=== PATIENT | female | born 1965 | race Caucasian/White ===

== ENCOUNTER 2024-08-04 23:22 | Emergency (ER) | payer SELFPAY ==
[2024-08-04 23:23] VITALS: BMI 29.2
[2024-08-05 00:09] VITALS: BP 101/67; PULSE 80; RESP 18; TEMP 36.6; O2SAT 97
--- NOTE | 2024-08-05 00:21 | XR_ITS ---
Examination: Humerus 2 views left Technique: Humerus, AP lateral 2 views Date and time of exam: August 05, 2024, 12:35 AM INDICATIONS: Patient fell today with injury to the arm, arm pain FINDINGS: No fracture or shoulder dislocation IMPRESSION: No fracture or shoulder dislocation
--- NOTE | 2024-08-05 01:36 | PRELIM_ITS ---
Radiographs of the left humerus (2 views). August 05, 2024 at 0035 hours Clinical history: Fall. Comparison: No prior study is available for comparison. Findings: There is no evidence of fracture or dislocation. The humerus and its articulations are unremarkable. The soft tissues are unremarkable. Impression: No evidence of fracture or dislocation. Report Electronically Signed By: Dave Vides 08/05/2024 1:35:59 AM [EST]
--- NOTE | 2024-08-05 04:31 | PD.EDUPEX ---
Upper Extremity Injury RME/HPI General Chief Complaint: Fall Stated Complaint: LEFT ARM PAIN Time Seen by Provider: 08/05/24 00:21 Arrival date/time: 08/04/24 23:22 59F with no significant PMH presents to ED with L upper arm pain after trip and fall. Patient did not hit her head. Limitations: no limitations Related Data Allergies Allergy/AdvReac Type Severity Reaction Status Date / Time varenicline Allergy Unknown Verified 07/21/23 15:33 PLASTIC TAPE AdvReac Mild Agitated Uncoded 07/21/23 15:34 Review of Systems Review of Systems Systems Reviewed: All systems reviewed, normal except as documented Constitutional Constitutional: Reports system reviewed and no additional complaints, except as documented, Denies fever(s) and Denies headache(s) ENT Ears, Nose, Mouth, and Throat: Denies disequilibrium and Denies headache(s) Cardiovascular Cardiovascular: Reports system reviewed and no additional complaints, except as documented, Denies chest pain and Denies dyspnea Respiratory Respiratory: Reports system reviewed and no additional complaints, except as documented, Denies cough and Denies dyspnea Gastrointestinal Gastrointestinal: Reports system reviewed and no additional complaints, except as documented, Denies abdominal pain, Denies nausea and Denies vomiting Musculoskeletal Musculoskeletal: Reports as per HPI and Reports arthralgias Neurologic Neurologic: Reports system reviewed and no additional complaints, except as documented, Denies confusion, Denies disequilibrium and Denies headache(s) Psychiatric Psychiatric: Denies confusion Past Medical History Social History SMOKING STATUS: Current some day smoker ED Exam General Limitations: Present no limitations General appearance: Present alert and in no apparent distress Head Head exam: Present atraumatic Eye Eye exam: Present normal appearance, PERRL and EOMI ENT ENT exam: Present normal exam, normal oropharynx and mucous membranes moist Neck Neck exam: Present normal inspection, full ROM and trachea midline Chest Chest inspection: Present normal inspection and symmetric chest wall rise Respiratory Respiratory exam: Present normal lung sounds bilaterally Cardiovascular Cardiovascular exam: Present regular rate, normal rhythm and normal heart sounds Abdominal Exam Abdominal exam: Present soft and normal bowel sounds Extremities Exam Extremities exam: Present full ROM Expanded Upper Extremity Exam Arm exam: Present full ROM (L) and tenderness Back Exam Back exam: Present normal inspection and full ROM Neurological Exam Neurological exam: Present alert, oriented X3 and CN II-XII intact Psychiatric Psychiatric exam: Present normal affect and normal mood Skin Skin exam: Present warm, dry, intact and normal color Course Quality Measures none Orders Category Date Time Status sling [Splint / Immobilizer] STAT Care 08/05/24 01:48 Active XR humerus LT MIN 2V Stat Exams 08/05/24 00:21 Taken Vital Signs Vital signs: Vital Signs Temperature 97.8 F 08/05/24 00:09 Pulse Rate 80 08/05/24 00:09 Respiratory Rate 18 08/05/24 00:09 Blood Pressure 101/67 08/05/24 00:09 Pulse Oximetry (%) 97 08/05/24 00:09 Oxygen Delivery Method Room Air 08/05/24 00:09 O2 at 97% on RA and WNLs Extremity Injury MDM Narrative MDM Narrative:: 59F with no significant PMH presents to ED with L upper arm pain after trip and fall. Patient did not hit her head. Physical exam reveals L upper arm tenderness. Some pain with ROM, though mostly intact. Patient is afebrile, calm, and alert. XR no fx. 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 Patient data External records reviewed:: None Clinical information provided by:: patient Social determinants that could affect healthcare access:: none Patient has the following chronic illnesses:: none How is presenting disease/condition affected by chronic disease/condition?: no chronic disease Evaluation data The following diagnostics were reviewed and interpreted by me:: radiology exam(s) Lab and/or radiology exams considered but not ordered:: ordered Interpretation Summary: above Medications / Prescriptions Medications or Prescriptions considered but not ordered:: not ordered Medication administrations:: n/a Consultations Consultation(s) initiated? (list below): No Diagnosis Upper Extremity Injury Differential Diagnosis: sprain and strain of wrist, fracture of wrist, finger sprain, dislocation of finger, Colles' fracture, fracture of hand, dislocation of shoulder, fracture of humerus, fracture of clavicle and other (arm contusion) Most likely diagnosis given after review of the tests above:: arm contusion Admission Indicated Admission indicated?: not indicated Admission Request Was there a request for admission?: No Disposition Plan Disposition Plan: Discharge Discharge Attestation Discharge Attestation: The patient and all family members were given an opportunity to ask questions and understood the discharge instructions. Discharge instructions specifically effects, indications for sooner follow up or return to the emergency department, and the expected course of current diagnosis. Patient condition: Stable Discharge Plan Plan Patient Disposition: HOME (Self Care) Discharge Disposition comment: Stable Prescriptions/Referrals Referrals: Temporary Provider,ED [Primary Care Provider] - In 1 week Problem List Clinical Impression: Arm contusion Patient/Caregiver Discharge Instructions Education Materials: ED Contusion, Upper Extremity Additional Instructions: Please follow-up with PCP within 24-48 hours and return immediately if symptoms worsen. If problem persists, recommend outpatient PT and/or MRI follow-up. In the meantime, rest, use ice/heat, and/or compression. Print Language: Niuean Stand Alone Forms: Patient Portal Info Letter PA/ACADEMIC SUPPORT DIRECTOR Supervising Physician PA/ACADEMIC SUPPORT DIRECTOR Supervising Physician: Dr. Elizabeth
== END 2024-08-05 01:57 | disposition home or self-care (01) ==
LOC: SERX 08-05 06:39
PROVIDERS: Emergency Provider Emergency Medicine
DX: S40.022A Contusion of left upper arm, initial encounter (principal); W01.0XXA Fall on same level from slipping, tripping and stumbling without subsequent striking against object, initial encounter
CPT/HCPCS: 73060; 99283; A4565